=== PATIENT | male | born 1970 | race Caucasian/White ===

== ENCOUNTER 2018-04-30 15:57 | Emergency (ER) | payer OTHER ==
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
[2018-04-30 16:16] LABS: PLATELET COUNT 194 10^3/uL (150-400)
[2018-04-30 16:48] LABS: INR 0.98 (0.83-1.16); PROTIME(PATIENT) 13.2 SEC (12.0-15.0)
[2018-04-30 17:53] VITALS: BP 143/85
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
== END 2018-04-30 17:52 | disposition home or self-care (01) ==
LOC: EDUNIT#
DX: R47.9 Unspecified speech disturbances (principal); G93.89 Other specified disorders of brain; Z87.820 Personal history of traumatic brain injury
CPT/HCPCS: 82435-PO; 82565-PO; 82947-PO; 84132-PO; 84295-PO; 84520-PO; 85014-PO